=== PATIENT | male | born 1955 | race Caucasian/White ===

== ENCOUNTER 2025-05-31 17:55 | Emergency (ER) | payer MEDICARE, SELFPAY ==
[2025-05-31] VITALS (7 sets, daily range): BP systolic 129–147; BP diastolic 63–75; PULSE 89–100; RESP 16–20; TEMP 36.5–37.1; O2SAT 92–97; BMI 33.7
--- NOTE | 2025-05-31 | ECG_ITS ---
Test Reason : DIZZINESS Blood Pressure : */* mmHG Vent. Rate : 99 BPM Atrial Rate : 99 BPM P-R Int : 244 ms QRS Dur : 112 ms QT Int : 348 ms P-R-T Axes : 44 -24 30 degrees QTcB Int : 446 ms Sinus rhythm with 1st degree A-V block Low voltage QRS Incomplete right bundle branch block Borderline ECG No previous ECGs available Referred By: Generic ED Physician Electronically Signed By: Moncho Jackman
--- NOTE | ~2025-05-31 | XR_ITS ---
CLINICAL HISTORY: near syncope 1 view chest x-ray Comparison: None provided Findings: Minimal bibasilar meniscus ground-glass opacity. The lungs are under expanded. Normal size heart. No acute fracture. IMPRESSION: 1. Minimal bibasilar dependent subsegmental atelectasis. This document has been electronically signed by: Alek Medellin MD on 05/31/2025 20:24:09
[2025-05-31 19:01] LABS: Glucose, Whole Blood 189 mg/dL (60-115)
--- NOTE | 2025-05-31 19:05 | PC.NURSE ---
this RN assumed care of this pt @1900, pt noted to b resting in hospital stretcher w/ eyes closed, responding to verbal stimuli, warm blanket given for comfort, no apparent distress noted at this time
[2025-05-31 20:19] LABS: Hematocrit 35.4 % (42.0-52.0); Hemoglobin 12.4 g/dl (14.0-18.0); Imm Gran Abs Auto 0.02 X10*3/uL (0.00-0.03); Imm Gran Pct Auto 0.3 % (0.0-0.4); Lymphocytes Absolute Auto 0.5 X10*3/uL (1.2-4.9); MANUAL DIFF FLAG NO; Mean Corpuscular HGB Conc 35.0 g/dl (31.0-36.0); Mean Corpuscular Hemoglobin 30.0 pg (27.0-33.0); Mean Corpuscular Volume 85.7 fL (80.0-98.0); NRBC Abs Auto 0.000 X10*3/uL (0.0-0.012); NRBC Pct Auto 0.0 /100WBC (0.0-0.2); Platelet Count 128 X10*3/uL (160-400); Red Blood Count 4.13 X10*6/uL (4.60-5.80); White Blood Count 8.0 X10*3/uL (4.8-10.8)
[2025-05-31 20:36] LABS: COVID-19 Test Negative (Negative); IDNOW Serial# 152EDE1D
[2025-05-31 20:41] LABS: Alanine Aminotransferase 21 U/L (0-40); Albumin Level 4.9 g/dL (3.5-5.0); Alkaline Phosphatase 61 U/L (39-117); Anion Gap 15 (12-20); Aspartate Amino Transferase 23 U/L (5-37); Blood Urea Nitrogen 39 mg/dL (9-16); Calcium 10.5 mg/dL (8.4-10.2); Carbon Dioxide 25 mmol/L (22-29); Chloride 108 mmol/L (96-108); Creatinine Clr Calc Pharmacy 43.8; Estimated Glomerular Filt Rate 39; Lipase 36 U/L (8-78); Magnesium 1.5 mg/dL (1.6-2.6); Potassium 5.4 mmol/L (3.3-5.1); Sodium 143 mmol/L (135-145); Total Protein 7.5 g/dL (6.5-8.0)
[2025-05-31 20:48] LABS: Troponin-I High Sensitivity 3.6 ng/L (<3.5-35.0)
--- OUTSIDE RECORDS SUMMARY | 2025-05-31 21:13 | XMS_ITS | Clinical Summary ---
Author Organization [address] Address [address] [place] [phone] Phone Care Team Providers Care Vocational Nurse Lvn Name Role Phone Susan Sierra MD Primary Care Provider [phone] Medications vitamin B complex (VITAMINS B COMPLEX ORAL) Take by mouth. Active blood-glucose meter (Pogo Automatic Blood Gluc Sys) [facility] Glucose Blood Automatic (POGO Automatic Test Cartridges) Test 1 Each by In Vitro route daily. One cannister of the pogo test cartridges ,containing 5 cartridges Use to test blood sugars once a day Dx code E11.51 - In Vitro 04/15/20 24 Active medical supply, miscellaneous (MISCELLANEOUS MEDICAL SUPPLY [place]) HISTORICAL CPAP Sig - Route: 12cm via nasal mask/ BHI&R - Inhalation Active niacin (NIASPAN) 500 mg CR tablet Take 1 Tab by mouth at bedtime. 11/15/19 17 Active aspirin 81 mg EC tablet 1 TABLET DAILY 07/05/20 07 Active loratadine (CLARITIN) 10 mg tablet Take 1 tablet (10 mg total) by mouth 1 (one) time each day. 90 tablet 1 02/26/20 25 Active cholecalciferol (VITAMIN D-3) 25 mcg (1,000 unit) tablet Take 1 tablet (1,000 Units total) by mouth 1 (one) time each day. 02/26/20 25 Active dapagliflozin propanediol (FARXIGA) 5 mg tablet Take 1 tablet (5 mg total) by mouth 1 (one) time each day. 30 each 03/27/20 25 026 Active glipiZIDE (GLUCOTROL) 10 mg tablet Take 1 tablet (10 mg total) by mouth 2 (two) times a day with meals. 180 tablet 03/31/20 25 Active metFORMIN (GLUCOPHAGE) 1,000 mg tablet Take 1 tablet (1,000 mg total) by mouth 2 (two) times a day with meals. 180 tablet 03/31/20 25 Active allopurinoL (ZYLOPRIM) 100 mg tablet Take 0.5 tablets (50 mg total) by mouth 1 (one) time each day. 45 tablet 03/31/20 25 Active hydroCHLOROthiaz charlie (MICROZIDE) 12.5 mg capsule Take 1 capsule (12.5 mg total) by mouth 1 (one) time each day in the morning. 90 capsule 03/31/20 25 Active amLODIPine (NORVASC) 10 mg tablet Take 1 tablet (10 mg total) by mouth at bedtime. 90 tablet 03/31/20 25 Active atorvastatin (LIPITOR) 20 mg tablet Take 1 tablet (20 mg total) by mouth at bedtime. 90 tablet 03/31/20 25 Active lisinopriL (PRINIVIL,ZESTRI L) 2.5 mg tablet TAKE 1 TABLET(2.5 MG) BY MOUTH AT BEDTIME 90 tablet 1 05/21/20 25 Active gabapentin (NEURONTIN) 300 mg capsule TAKE 1 CAPSULE(300 MG) BY MOUTH THREE TIMES DAILY 270 capsule 1 05/21/20 25 Active gabapentin (NEURONTIN) 300 mg capsule TAKE 1 CAPSULE(300 MG) BY MOUTH THREE TIMES DAILY 270 capsule 1 11/29/19 25 025 Discontinued lisinopriL (PRINIVIL,ZESTRI L) 2.5 mg tablet Take 1 tablet (2.5 mg total) by mouth at bedtime. 90 tablet 02/26/20 25 025 Discontinued Active Problems Problem Noted Date Diagnosed Date HTN (hypertension) 10/18/2024 Assessment & Plan (10/22/2024 12:57 PM EST): Type II diabetes mellitus wi th renal manifestations (CMS/HCC V24, CMS/HCC V28) 07/11/2024 Assessment & Plan (10/22/2024 12:57 PM EST): Orders: Hemoglobin A1c; Future Abdominal hernia 07/11/2024 Overview (07/11/2024): IMO update Colon polyps 03/02/2023 Overview (07/11/2024): 2018, 4 TA, 2022 3 TA, repeat 3 years CKD (chronic kidney disease) stage 3, GFR 30-59 ml/min ([facility] V24, [facility] V28) 12/13/2019 Assessment & Plan (10/22/2024 12:57 PM EST): Carpal tunnel syndrome on both sides 06/30/2017 Diabetic polyneuropathy asso ciated with type 2 diabetes mellitus ([facility] V24, [facility] V28) 11/14/2016 Severe obesity (BMI 35.0-39. 9) with comorbidity ([facility] V24, [facility] V28) 08/29/2013 Pancytopenia ([facility] V24, [facility] V28) 08/22/20 13 NS (nuclear sclerosis) 01/21/2013 Overview (07/11/2024): Bilateral- mild. Type II diabetes mellitus wi th ophthalmic manifestations ([facility] V24, [facility] V28) 01/21/2013 Microalbuminuria 12/07/2012 Type 2 diabetes mellitus wit h peripheral vascular disease ([facility] V24, [facility] V28) 10/30/2012 Diverticula of colon 08/02/2011 Pure hypercholesterolemia 10/19/2010 Assessment & Plan (10/22/2024 12:57 PM EST): Fatty liver 01/28/2010 Gall stone 01/28/2010 Overview (07/11/2024): Incidental finding on CT of the chest. 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 Gout, unspecified 07/05/2007 Encounters Date Type Department Care Team Description 03/27/2025 1:15 PM EDT Office Visit Nephrology [address] [phone] Serafin Ivan MD Stage 3 chronic kidney disease, unspecified whether stage 3a or 3b CKD ([facility] V24, [facility] V28) (Primary Dx); Type 2 diabetes mellitus with diabetic nephropathy, without long-term current use of insulin ([facility] V24, [facility] V28); Hypertension, unspecified type from Last 3 Months Immunizations Name Administration Dates Next Due H1N1 Inj Preservative Free 07/28/2009 Influenza Quadravalent, 0.5m l (Fluzone High-dose) 65yo and older 05/18/2022 Influenza Quadravalent, MDCK , 0.5ml, preservative free (Flucelvax) 6mo and older 05/21/2018 Influenza Quadravalent, MDCK , 0.5ml, with preservative (Flucelvax) 6mo and older 05/18/2017 Influenza Quadrivalent, 0.5m l, preservative free (Fluarix; FluLaval; Fluzone) ages 6mo and older (Afluria) 3yo and older 05/10/2016 Influenza trivalent, 0.5mL ( Fluad) 65yo and older 10/22/2024,06/15/2023,07/04/2022,05/18,05/31/2021,06/02/2020,08/21/2019 Influenza trivalent, 0.5mL ( Fluzone High-dose) 65yo and older 06/15/2023,07/04/2022,05/31/2021,06/02,08/21/2019 Influenza trivalent, 0.5mL, preservative free (Fluarix; FluLaval; Fluzone) ages 6mo and older (Afluria) 3 years and older 07/28/2008,07/05/2007 Influenza trivalent, with pr eservative (Fluzone; Afluria) 6mo and older 05/10/2016,06/10/2015,06/16/2014,05/23,05/10/2012,08/02/2011,07/21/2010 ,08/21/2009,07/28/2008,07/05/2007 Moderna (age 6mo & older) Bi valent, COVID-19, 0.5 mL or 0.25 mL dosage 07/08/2022 Pneumococcal conjugate 13 va lent (Prevnar 13, PCV13) 2mo and older 12/16/2014 Pneumococcal polysaccharide 23 valent (Pneumovax 23) 2yo and older 11/19/2018,08/16/2012,07/05/2007 Td Tetanus diptheria (Tdvax) 7yo and older 08/20/2018 Tdap Tetanus diptheria acell ular pertussis (Boostrix; Adacel) 7yo and older 07/28/2008 Zoster Live 05/10/2016 Surgical History Surgery Date Site/Laterality Comments OTHER SURGICAL HISTORY baby Tongue tied surgery CATARACT EXTRACTION 09/04/2004 COLONOSCOPY 06/11/2008 Up to cecum, good preparation, mild sigmoid diverticulosis COLONOSCOPY 08/2023 3 tubular adenomas, repeat 3 years Medical History Medical History Date Comments Metabolic syndrome X HTN (hypertension) Gout Diverticula of colon 08/02/2011 DM (diabetes mellitus), type 2 with peripheral vascular complications ([facility] V24, [facility] V28) 10/30/2012 Sleep apnea Wrist pain 11/09/2015 Peripheral neuropathy Family History Medical History Relation Name Comments Diabetes Brother 1 Other: heart Brother 2 Heart attack Father PVD Heart attack Mother Relation Name Status Comments Brother 1 (Age 55) Brother 2 Father (Age 60s) Maternal Grandfather Maternal Grandmother Mother (Age 48) Paternal Grandfather Paternal Grandmother Social History Tobacco Use Types Packs/Day Years Used Date Smoking Tobacco: Never Smokeless Tobacco: Never Alcohol Use Standard Drinks/Week Comments Yes 0 (1 standard drink = 0.6 oz pur e alcohol) Housing Instability Answer Date Recorde d Are you worried that in the next 2 months you may not have stable housing? No 10/15/2024 Food Access & Nutrition Answer Date Rec orded Do you have access to a vari ety of food including fruits and vegetables? Yes 10/15/2024 Access to Healthcare Answer Date Record ed Within the last 3 months, ho w many times did you visit the emergency department for your medical care? 0 10/15/2024 Health Literacy Answer Date Recorded How often do you need to hav e someone help you when you read instructions, pamphlets, or other written material from your doctor or pharmacy? Sometimes 10/15/2024 Caregiver: How often do you need to have someone help you when you read instructions, pamphlets, or other written material from your doctor or pharmacy? Not on file 10/15/2024 Financial Risk Answer Date Recorded How hard is it for you to pa y for the very basics like food, housing, medical care, and air conditioning / heating? Somewhat hard 10/15/2024 Transportation Answer Date Recorded Has the lack of transportati on kept you from meetings, work, or from getting things needed for daily living? No Has the lack of transportati on kept you from medical appointments or from getting medications? No 10/15/2024 Social Isolation Answer Date Recorded How often do you feel lonely or isolated from th ose around you? Rarely 10/15/2024 Food Risk Answer Date Recorded Within the past 12 months we worried whether our food would run out before we got money to buy more. Never true 10/15/2024 Within the past 12 months th e food we bought just didn't last and we didn't have money to get more. Never true 10/15/2024 Dependent Care Answer Date Recorded Do you need help finding or paying for care for your loved ones. For example, director maternal child or elderly care for an older adult? No 10/15/2024 Education Answer Date Recorded Do you think completing more education or training, like finishing a GED, going to college, or learning a trade, would be helpful for you? No 10/15/2024 Employment and Income Answer Date Recor ded During the last four weeks, have you been actively looking for work? No 10/15/2024 Living Situation Answer Date Recorded What is your living situation? 0 10/15/2024 Sex and Gender Information Value Date Recorded Sex Assigned at Not on file Legal Sex Male 9:32 PM EST Gender Identity Not on file Sexual Orientation Not on file Obstetrics History Last Filed Vital Signs Vital Sign Reading Time Taken Comments Blood Pressure 115/61 03/27/2025 1:11 PM EDT Pulse 66 03/27/2025 1:11 PM EDT Temperature 35.8 C (96.5 F) 02/25/2025 9:54 AM EDT Respiratory Rate 16 02/25/2025 9:54 AM EDT Oxygen Saturation 98% 02/25/2025 9:54 AM EDT Inhaled Oxygen Concentration - - Weight 98 kg (216 lb) 03/27/2025 1:11 PM EDT Height 170.2 cm (5' 7 ) 02/25/2025 9:54 AM EDT Body Mass Index 33.83 02/25/2025 9:54 AM EDT Plan of Treatment Upcoming Encounters Date Type Department Care Team (Late st Contact Info) Description 07/03/2025 8:15 AM EDT Office Visit Adult Medicine [address] [phone] Susan Sierra MD [address] [place], [place] 04/02/2026 1:00 PM EDT Office Visit Nephrology - [address] [phone] Serafin Ivan MD [facility] [address] [phone] Health Maintenance Due Date Last Done Comments Diabetes: Annual Foot Exam 1965 Diabetes: Annual Retina Eye Exam 1965 RSV Immunization Adult Patients (1 - Risk 60-74 years 1-dose series) 2013 Zoster Vaccines (1 of 2) 07/05/2016 05/10/2016 COVID-19 Vaccine ( season) 2025 07/17/2023, 07/08/2022, 12/24/2021, Additional history exists Influenza Vaccine (#1) 2025 , 06/15/2023, 06/15/2023, Additional history exists Diabetes: Blood Sugar Control Test (HGBA1C) 07/23/2025 01/20/2025, 10/08/2024, 07/22/2024, Additional history exists Social Influencers of Health Screening 10/15/2025 10/15/2024 Medicare Annual Wellness Visit 10/22/2025 10/22/2024, 10/16/2023 Diabetes: Annual Urine Albumin-Creatinine Ratio (uACR) 01/30/2026 01/30/2025, 10/08/2024, 04/03/2024 Diabetes: Annual GFR (Glomerular Filtration Rate) 01/30/2026 01/30/2025, 10/08/2024, 08/15/2024, Additional history exists Hypertension/CHF/CAD Annual BMP Blood Test 01/30/2026 01/30/2025, 10/08/2024, 08/15/2024, Additional history exists Falls Risk Assessment 02/25/2026 02/25/2025, 025 Colorectal Cancer Screening: Colonoscopy 08/15/2026 08/18/2023, 08/15/2023 DTaP,Tdap,and Td Vaccines (3 - Td or Tdap) 08/20/2028 08/20/2018, 07/28/2008 Cholesterol Screening (Lipid Panel) 04/03/2029 04/03/2024, 04/03/2024 Pneumococcal Vaccine: 50+ Years Completed 11/19/2018, 12/16/2014, 08/16/2012, Additional history exists Hepatitis C Screening Completed 12/16/2019 Depression Screening Completed 02/19/2025 HIB Vaccines Aged Out No longer eligi ble based on patient's age to complete this topic HPV Vaccines Aged Out No longer eligi ble based on patient's age to complete this topic Hepatitis A Vaccines Aged Out No long er eligible based on patient's age to complete this topic Hepatitis B Vaccines Aged Out No long er eligible based on patient's age to complete this topic IPV Vaccines Aged Out No longer eligi ble based on patient's age to complete this topic MMR Vaccines Aged Out No longer eligi ble based on patient's age to complete this topic Meningococcal ACWY Vaccine Aged Out N o longer eligible based on patient's age to complete this topic Meningococcal B Vaccine Aged Out No l onger eligible based on patient's age to complete this topic RSV Immunization Patients Under 20 months Aged Out No longer eligible based on patient's age to complete this topic Varicella Vaccines Aged Out No longer eligible based on patient's age to complete this topic Procedures Procedure Name Priority Date/Time Associated Diagnosis Comments MICROALBUMIN CREATININE URINE RATIO Routine 01/30/2025 2:27 PM EDT Stage 3 chronic kidney disease, unspecified whether stage 3a or 3b CKD ([facility] V24, [facility] V28) BASIC METABOLIC PANEL Routine 01/30/2025 2:27 PM EDT Stage 3 chronic kidney disease, unspecified whether stage 3a or 3b CKD (CMS/HCC V24, [facility] V28) HEMOGLOBIN A1C Routine 01/20/2025 10:00 AM EDT Type 2 diabetes mellitus with stage 3 chronic kidney disease, without long-term current use of insulin, unspecified whether stage 3a or 3b CKD (CMS/HCC V24, [facility] V28) LIPID PANEL Routine 04/03/2024 HM COLONOSCOPY Routine 08/18/2023 HEPATITIS C SCREENING Routine 12/16/2019 from Last 3 Months or Most Recently Relevant to Health Maintenance Results * (ABNORMAL) Microalbumin creatinine urine ratio (01/30/2025 2:27 PM EDT) Creatinine, Urine 54.0 mg/dL LAB CHEMISTRY METHOD 01/30/2025 6:03 PM EDT [facility] Microalb, Ur 141.0(H) 0.0 - 29.0 mg/L LAB CHEMISTRY METHOD 01/30/2025 6:03 PM T [facility] Microalb/Crea t Ratio 261(H) <30 mg/g creat LAB CHEMISTRY METHOD 01/30/2025 6:03 PM [facility] Urine Urine specimen obtained by clean catch procedure / Unknown Non-blood Collection / Unknown 01/30/2025 2:27 PM EDT 01/30/2025 2:27 PM EDT us Serafin Ivan MD LAB URINE ORDERABLES Final Res ult [facility] [address] [place] [address], * (ABNORMAL) Basic metabolic panel (01/30/2025 2:27 PM EDT) Sodium 140 133 - 145 mmol/L [facility] Potassium 4.6 3.5 - 5.5 mmol/L LAB CHEMISTRY METHOD 01/30/2025 5:13 PM [facility] Chloride 106 96 - 110 mmol/L LAB CHEMISTRY METHOD 01/30/2025 5:13 PM [facility] CO2 27 21 - 32 mmol/L LAB CHEMISTRY METHOD 01/30/2025 5:13 PM [facility] Anion Gap 7 3 - 11 LAB CHEMISTRY METHOD 01/30/2025 5:13 PM [facility] Glucose 134(H) 70 - 100 mg/dL LAB CHEMISTRY METHOD 01/30/2025 5:13 PM [facility] BUN 36(H) 5 - 25 mg/dL LAB CHEMISTRY METHOD 01/30/2025 5:13 PM [facility] Creatinine 1.42(H) 0.70 - 1.30 mg/dL LAB CHEMISTRY METHOD 01/30/2025 5:13 PM [facility] eGFR 53(L) >=60 mL/min/1. 73m2 LAB CHEMISTRY METHOD 01/30/2025 5:13 PM [facility] Comment:Calculation based on the Chronic Kidney Disease Epidemiology Collaboration (CKD-EPI) equation refit without adjustment for race. BUN/Creatinine Ratio 25.4 LAB CHEMISTRY METHOD 01/30/2025 5:13 PM [facility] Calcium 9.7 8.5 - 10.5 mg/dL LAB CHEMISTRY METHOD 01/30/2025 5:13 PM EDT [facility] Blood Venous blood specimen / Unknown Venipuncture / Unknown 01/30/2025 2:27 PM EDT 01/30/2025 2:27 PM EDT Serafin Ivan MD LAB BLOOD ORDERABLES Final Res ult Performing Organization Address [facility]/ZIP Co de Phone Number [facility] [address] [place] [address], [place] [phone] * (ABNORMAL) Hemoglobin A1c (01/20/2025 10:00 AM EDT) Hemoglobin A1C 6.7(H) <6.5 % LAB CHEMISTRY METHOD 01/20/2025 9:53 PM EDT [facility] Mean Bld Glu Estim. 146 mg/dL LAB CHEMISTRY METHOD 01/20/2025 9:53 PM EDT [facility] Blood Venous blood specimen / Unknown Venipuncture / Unknown 01/20/2025 10:00 AM EDT 01/20/2025 10:00 AM EDT Susan Sierra MD LAB BLOOD ORDERABLES Final Resul t Performing Organization Address [facility]/ZIP Co de Phone Number [facility] [address] [place] [address], [place] [phone] * (ABNORMAL) Lipid panel (04/03/2024) LDL/HDL Ratio 2 0 - 4 Triglycerides 175(A) 0 - 150 mg/dL Cholesterol 74 0 - 200 mg/dL HDL 32(A) >=40 mg/dL LDL Cholesterol 0 0 - 100 mg/dL Comment:no interpretation Blood Venous blood specimen / Unknown Maya Oglesby MD LAB BLOOD ORDERABLES Valery l Result * Hm Colonoscopy (08/18/2023) Colonoscopy no interpretation , abstracted Anatomical Region Laterality Modality Other Historical Provider HEALTH MAINTENANCE Final Result * Hepatitis C Screening (12/16/2019) Hepatitis C Screening abstracted Historical Provider HEALTH MAINTENANCE Final Result from Last 3 Months or Most Recently Relevant to Health Maintenance Insurance [employer] Care Teams Vocational Nurse Lvn Relationship Specialty Start Date End Date Susan Sierra MD [address] [place] [phone] PCP - General Internal Medicine 12/02/20
--- OUTSIDE RECORDS SUMMARY | 2025-05-31 21:13 | XMS_ITS ---
Author Name [facility] Organization Unknown Care Team Organization Name Specialty Phone Email Start Date End Da te [facility] Susan Sierra Primary Care 07/12/2022 4
--- OUTSIDE RECORDS SUMMARY | 2025-05-31 21:13 | XMS_ITS | Clinical Summary ---
Author Organization [facility] Address [address] [address] Phone Care Team Providers Care Reservationist Name Role Phone Susan Sierra MD Primary Care Provider [phone] Allergies No known active allergies Medications b complex vitamins tablet Take by mouth. Active allopurinol (ZYLOPRIM) 100 MG tablet Take 1 tablet by mouth daily. 04/05/2021 Active atorvastatin (LIPITOR) 20 MG tablet Take 1 tablet by mouth daily. 03/31/2021 Active cholecalciferol (VITAMIN D3) 25 MCG (1,000 unit) tablet Take 500 mg by mouth daily. Active gabapentin (NEURONTIN) 300 MG capsule Take 1 capsule by mouth nightly at bedtime. 02/25/2021 Active glipiZIDE (GLUCOTROL) 10 MG tablet Take 10 mg by mouth. 05/31/2021 Active hydroCHLOROthia zide (MICROZIDE) 12.5 mg capsule Take 12.5 mg by mouth. 04/02/2021 Active lisinopril (PRINIVIL,ZESTR IL) 2.5 MG tablet Take 1 tablet by mouth daily. 02/05/2021 Active metFORMIN (GLUCOPHAGE) 1000 MG tablet TAKE 1 TABLET BY MOUTH 2 TIMES DAILY WITH MEALS 04/02/2021 Active aspirin 81 mg chewable tablet Take 81 mg by mouth daily. Active Active Problems No known active problems Social History Tobacco Use Types Packs/Day Years Used Date Smoking Tobacco: Never Smokeless Tobacco: Never Alcohol Use Standard Drinks/Week Comments Never 0 (1 standard drink = 0.6 oz pur e alcohol) Education Answer Date Recorded Are you interested in more education? Not on lori e 12/30/2022 Are you concerned about learning? Not on file 12/30/2022 No 12/30/2022 No 12/30/2022 Digital Access Answer Date Recorded No 01/28/2023 No 01/28/2023 No 01/28/2023 Reliable internet access at home? Not on file 01/28/2023 Device with a working camera? Not on file Intimate Partner Violence Answer Date R ecorded Are you denied basic needs s uch as food, clothing, or medical care? No 10/19/2024 In the past 12 months have y ou been in a relationship with a person who hurts, threatens, or tries to control you? No 10/19/2024 Are you denied basic needs s uch as food, clothing, or medical care? No 10/19/2024 In the past 12 months have y ou been in a relationship with a person who hurts, threatens, or tries to control you? No 10/19/2024 Sex and Gender Information Value Date Recorded Sex Assigned at Male 10/19/2024 9:45 PM EST Legal Sex Male 9:58 PM EDT Gender Identity Male 10/19/2024 9:45 PM EST Sexual Orientation Choose not to disclose 2024 9:45 PM EST Last Filed Vital Signs Vital Sign Reading Time Taken Comments Blood Pressure 141/77 10/20/2024 12:39 AM EST Pulse 68 10/20/2024 12:39 AM EST Temperature 36.6 C (97.9 F) 10/20/2024 12:39 AM EST Respiratory Rate 16 10/20/2024 12:39 AM EST Oxygen Saturation 98% 10/20/2024 12:39 AM EST Inhaled Oxygen Concentration - - Weight 97.5 kg (215 lb) 10/19/2024 4:17 PM EST Height 170.2 cm (5' 7 ) 10/19/2024 4:17 PM EST Body Mass Index 33.67 10/19/2024 4:17 PM EST Plan of Treatment Health Maintenance Due Date Last Done Comments DEPRESSION SCREENING 1965 HEPATITIS C SCREENING 1971 COLOGUARD 1998 COLONOSCOPY 1998 COLORECTAL CANCER SCREENING 1998 FIT TEST 1998 FOBT 1998 SIGMOIDOSCOPY 1998 VIRTUAL COLONOSCOPY 1998 ZOSTER VACCINES (2 of 3) 07/05/2016 05/10/2016 INFLUENZA VACCINE (#1) 2025 , 05/31/2021, 06/02/2020, Additional history exists COVID-19 VACCINE (3 - 2024- season) 2025 10/27/2020, 10/27/2020, 09/29/2020, Additional history exists CREATININE LEVEL 10/19/2025 10/19/2024 POTASSIUM LEVEL 10/19/2025 10/19/2024 Adult Td,Tdap Booster 08/20/2028 08/20/2018, 008 RSV VACCINE (1 - 1-dose 75+ series) 2028 LIPID PANEL 04/03/2029 04/03/2024 PNEUMOCOCCAL VACCINES (50+ years) Completed 11/19/2018, 12/16/2014, 08/16/2012, Additional history exists SMOKING STATUS SCREENING (Once After 26 Yrs) Completed 06/18/2021 HEPATITIS A VACCINES Aged Out No long er eligible based on patient's age to complete this topic HIB VACCINES Aged Out No longer eligi ble based on patient's age to complete this topic MENINGOCOCCAL VACCINES (ACWY) Aged Out No longer eligible based on patient's age to complete this topic MENINGOCOCCAL VACCINES (B) Aged Out N o longer eligible based on patient's age to complete this topic Medical Devices Not on file Procedures Procedure Name Priority Date/Time Associated Diagnosis Comments BASIC METABOLIC PANEL STAT 10/19/2024 4:23 PM EST from Last 3 Months or Most Recently Relevant to Health Maintenance Results * (ABNORMAL) Basic metabolic panel (10/19/2024 4:23 PM EST) SODIUM 138 133 - 146 mmol/L [facility] CHLORIDE 100 96 - 108 mmol/L [facility] POTASSIUM 4.9 3.3 - 5.1 mmol/L [facility] CO2 29 21 - 35 mmol/L [facility] BUN 30(H) 6 - 19 mg/dL [facility] CREATININE 1.40 0.5 - 1.5 mg/dL [facility] GLUCOSE 136(H) 70 - 99 mg/dL [facility] CALCIUM 10.2 8.4 - 10.3 mg/dL [facility] EGFR 54(L) >59 mL/min/1.7 3m2 [facility] Comment:Estimated glomerular filtration rate calculated using the CKD-EPI refit equation. ANION GAP 14 10 - 20 mmol/L [facility] Blood 10/19/2024 4:23 PM EST 10/19/2024 4:27 PM EST us Khalif Fried MD LAB BLOOD ORDERABL ES Final Result [facility] [address] [place] [address] from Last 3 Months or Most Recently Relevant to Health Maintenance Insurance [employer] HMO REPLACEMENT MEDICARE PART A & B [employer] HMO REPLACEMENT MEDICARE PART A & B MEDICARE HMO REPLACEMENT MEDICARE HMO [place] [address] [place] [address] MEDICARE HMO REPLACEMENT MEDICARE PART A & B [place] [facility] MEDICARE HMO REPLACEMENT MEDICARE HMO REPLACEMENT MEDICARE PART A & B MEDICARE HMO REPLACEMENT MEDICARE PART A & B [employer] MEDIC[employer] HMO REPLACEMENT MEDICARE PART A & B Care Teams Reservationist Relationship Specialty Start Date End Date Susan Sierra MD [address] [place] [address] PCP - General Internal Medicine 06/18/21 Additional Source Comments The information contained in this document represents components of the legal health record. It is not the complete legal health record.[facility]
--- OUTSIDE RECORDS SUMMARY | 2025-05-31 21:13 | XMS_ITS | Encounter Summary ---
Author Organization [facility] Address [address] [facility] [address] [place] [id number] Phone Care Team Providers Care Ec Teacher Name Role Phone Susan Sierra MD Primary Care Provider [phone] Encounter Details Date Type Department Care Team (Late st Contact Info) Description 10/19/2024 Procedure [facility], Ct Scan - [address] [address] Social History Tobacco Use Types Packs/Day Years [...] not to disclose 2024 9:45 PM EST documented as of this encounter Functional Status * Calculated C-SSRS Risk Score (Lifetime/Recent) Answer Date of Assessment Author No Risk Indicated 10/19/2024 4:18 PM Autumn Soliman RN * [place] Suicide Severity Rating Scale (Screener/Recent Self-Report) Question Answer Date of Assessment Author 1. Wish to be (Past 1 Month) No 10/19/2024 4:18 PM Autumn Soliman RN 2. Non-Specific Active Suici diandra Thoughts (Past 1 Month) No 10/19/2024 4:18 PM Rozina Soliman RN 6. Suicidal Behavior (Lifetime) No 4:18 PM Autumn Soliman RN documented as of this encounter Plan of Treatment Not on file documented as of this encounter Visit Diagnoses Not on filedocumented in this encounter Care Teams Ec Teacher Relationship Specialty Start Date End Date Susan Sierra MD [address] [place] [id number] PCP - General Internal Medicine 06/18/21 documented as of this encounter Additional Source Comments The information contained in this document represents components of the legal health record. It is not the complete legal health record.[facility]
[2025-05-31] MEDS: Magnesium Sulfate/H2O 2 GM/50 ML PIGGYBACK IV (21:47)
--- NOTE | 2025-05-31 23:44 | ED_ITS ---
HPI - General Adult General Chief complaint: Nausea/Vomiting/Diarrhea Stated complaint: N/V, diaphoretic,felt glucose drop,bgl 185 for ems Time Seen by Provider: 05/31/25 19:56 Source: patient Limitations: no limitations History of Present Illness ED Provider: Michelle Silva PA-C HPI narrative: 69-year-old male with a history of diabetes, hypertension, hyperlipidemia, chronic kidney disease stage 3 who presents after near syncopal episode. 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 Patient states he became hot, with the associated abdominal cramping. He developed acute onset nausea vomiting diarrhea. Denies sick contacts with similar symptoms, recent travel, recent hospitalization or use of antibiotics. Denies preceding chest pain, palpitations or shortness of breath. Related Data Previous Rx's ?Medication ?Instructions ?Recorded ondansetron 4 mg disintegrating 4 mg PO Q8H PRN nausea and 05/31/25 tablet vomiting #10 tabs Allergies Allergy/AdvReac Type Severity Reaction Status Date / Time No Known Allergies Allergy Verified 05/31/25 18:41 [facility] Social History Social History Smoked in Last 30 Days: No Use of substances other than those prescribed or required for medical reasons: No Advance Directives: No Advance Directives Information Provided: No Do you have a plan to hurt others: No Plan Physical Exam ED Vital Signs: Vital Signs - 24 hr 05/31/25 18:45 05/31/25 20:46 05/31/25 20:46 Temperature 98.4 F Pulse Rate 99 94 95 Respiratory Rate 16 Blood Pressure 140/72 H 130/71 129/71 Pulse Oximetry 94 Oxygen Delivery Method Room Air 05/31/25 20:48 05/31/25 21:31 05/31/25 22:00 Temperature 97.7 F 98.7 F Pulse Rate 97 93 95 Respiratory Rate 17 20 Blood Pressure 132/75 129/73 131/63 Pulse Oximetry 97 92 Oxygen Delivery Method Room Air Room Air BMI result Body Mass Index 33.7 Medications Administered Discontinued Medications Generic Name Dose Route Start Last Admin Trade Name Freq PRN Reason Stop Dose Admin Sodium Chloride 1,000 mls @ 999 mls/hr 05/31/25 20:45 05/31/25 22:39 Ns IV 05/31/25 21:45 Infused .Q1H1M PARAS Infusion Magnesium Sulfate 2 gm in 50 mls @ 150 mls/hr 05/31/25 21:36 05/31/25 22:39 Magnesium Sulfate/H2o IV 05/31/25 21:55 Infused ONCE ONE Infusion Sodium Zirconium Cyclosilicate 10 gm 05/31/25 21:36 05/31/25 21:47 Sodium Zirconium Cyclosilicate 10 Gm Powd.Pack PO 05/31/25 21:37 10 gm ONCE ONE Administration Medical Decision Making Medical Decision Making [facility] Narrative: 69-year-old male with a history of diabetes, hypertension, hyperlipidemia, chronic kidney disease stage 3 who presents after near syncopal episode. 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 Patient states he became hot, with the associated abdominal cramping. He developed acute onset nausea vomiting diarrhea. Denies sick contacts with similar symptoms, recent travel, recent hospitalization or use of antibiotics. Denies preceding chest pain, palpitations or shortness of breath. Problem: Age, diabetes, chronic kidney disease History: Per patient I have considered the following differential diagnoses: Hyperglycemia, viral gastroenteritis, vasovagal near-syncope, dehydration, electrolyte abnormality, anemia, ACS Plan: Sounds as if the patient was developing acute GI symptoms, likely from viral gastroenteritis, prior to his near syncopal episode. I will classify this is vagal vagal syncope. Screening labs obtained from triage, his potassium is subtly bumped at 5.4, his creatinine is not far off from his baseline, but he is subtly dehydrated, his Mag is low as well. We will be giving fluid, Lokelma, calcium gluconate, and 2 g of magnesium. We will check orthostatic vitals. ACS was considered, the patient does have risk factors for coronary artery disease, however there was no chest pain no shortness of breath, EKG chest x-ray and troponin obtained. I have independently reviewed the following tests: Labs: No leukocytosis, not anemic, potassium bumped at 5.4, creatinine 1.72 the patient is minimally elevated from his baseline creatinine, magnesium 1.5, trop 3.6 EKG: Sinus rhythm, rate of 99, first-degree AV block, incomplete right bundle, no ectopy, QTC 446 Chest x-ray:indings: Minimal bibasilar meniscus ground-glass opacity. The lungs are under expanded. Normal size heart. No acute fracture. IMPRESSION: 1. Minimal bibasilar dependent subsegmental atelectasis. Differential Diagnosis Differential Diagnoses: The differential diagnosis associated with the presentation includes See medical decision-making Admission/Observation Consideration of admission/observation: Escalation of care including admission/observation considered Not applicable Lab Data MDM Lab Attestation statement: I reviewed the patient's lab results. 05/31/25 20:14 05/31/25 20:14 Labs: Lab Results 05/31/25 05/31/25 Range/Units 18:46 20:14 WBC 8.0 (4.8-10.8) X10*3/uL RBC 4.13 L (4.60-5.80) X10*6/uL Hgb 12.4 L (14.0-18.0) g/dl Hct 35.4 L (42.0-52.0) % MCV 85.7 (80.0-98.0) fL MCH 30.0 (27.0-33.0) pg MCHC 35.0 (31.0-36.0) g/dl RDW 13.7 (11.0-16.0) % Plt Count 128 L (160-400) X10*3/uL MPV 9.4 (9.4-12.4) fL Immature Gran % (Auto) 0.3 (0.0-0.4) % Neut % (Auto) 83.6 H (45-73) % Lymph % (Auto) 6.5 L (20-40) % Gentry % (Auto) 9.4 (2-11) % Eos % (Auto) 0.1 (0-4) % Baso % (Auto) 0.1 (0-2) % Lymph # (Auto) 0.5 L (1.2-4.9) X10*3/uL Gentry # (Auto) 0.8 (0.1-1.2) X10*3/uL Eos # (Auto) 0.0 (0.0-0.4) X10*3/uL Baso # (Auto) 0.0 (0.0-0.2) X10*3/uL Abs Immat Gran (auto) 0.02 (0.00-0.03) X10*3/uL Absolute Neuts (auto) 6.7 (2.0-8.3) x10*3/uL Absolute Nucleated RBC 0.000 (0.0-0.012) X10*3/uL Nucleated RBC % (auto) 0.0 (0.0-0.2) /100WBC Sodium 143 (135-145) mmol/L Potassium 5.4 H (3.3-5.1) mmol/L Chloride 108 (96-108) mmol/L Carbon Dioxide 25 (22-29) mmol/L Anion Gap 15 (12-20) BUN 39 H (9-16) mg/dL Creatinine 1.72 H (0.5-1.4) mg/dL Estim Creat Clear Calc 43.8 Estimated GFR 39 POC Glucose 189 H (60-115) mg/dL Random Glucose 201 H (60-115) mg/dL Calcium 10.5 H (8.4-10.2) mg/dL Magnesium 1.5 L (1.6-2.6) mg/dL Total Bilirubin 0.7 (0.0-1.0) mg/dL AST 23 (5-37) U/L ALT 21 (0-40) U/L Alkaline Phosphatase 61 (39-117) U/L Troponin I High Sens 3.6 (<3.5-35.0) ng/L Total Protein 7.5 (6.5-8.0) g/dL Albumin 4.9 (3.5-5.0) g/dL Lipase 36 (8-78) U/L COVID-19 (CAIN) Negative (Negative) COVID-19 Clin Com See Note Independent Interpretation I performed an independent interpretation of an: EKG Radiology Impression Discussion of test interpretation with radiology: I have reviewed the radiologist's reading. Critical Care Time Critical Care Time Critical Care Time: Yes Total Critical Care Time: 35 Attestation: I Michelle Silva PA-C have personally performed 35 minutes of critical care time not including lines and procedures; hypomagnesemia, hyperkalemia, need for IV calcium gluconate, Lokelma, 2 g of magnesium replacement, IV fluid therapy, Discharge Plan Discharge Clinical Impression: Gastroenteritis, Vasovagal near syncope Patient Disposition: Home, Self-Care Instructions: Syncope (ED), Gastroenteritis (ED) Additional Instructions: You were found to be mildly dehydrated, your magnesium level was on the low side of normal as well. The magnesium was replenished, you received IV fluid therapy. There were no concerning changes on your EKG, overall your lab studies were normal. I suspect you likely have a virus that caused your symptoms this afternoon. The acute onset of abdominal cramping with the active vomiting, can cause what is called a vasovagal reaction. I have provided you with information to read about. Follow up with your primary care provider as needed. Uses Zofran as needed for further episodes of nausea/vomiting. Prescriptions: New ondansetron 4 mg tablet,disintegrating 4 mg PO Q8H PRN (Reason: nausea and vomiting) Qty: 10 0RF Interventions: ED Discharge Assessment Last Done: 06/01/25 00:02 Discharge Date/Time: 06/01/25 00:10 Print Language: Ugandan
[2025-06-01 00:02] VITALS: BP 138/65; PULSE 89; RESP 16; TEMP 36.9; O2SAT 95
== END 2025-06-01 00:10 | disposition home or self-care (01) ==
PROVIDERS: Physician Assistant Medical; Emergency Provider Emergency Medicine; PCP Internal Medicine
DX: K52.9 Noninfective gastroenteritis and colitis, unspecified (principal); R11.2 Nausea with vomiting, unspecified; R55 Syncope and collapse; R11.0 Nausea; I44.0 Atrioventricular block, first degree; R94.31 Abnormal electrocardiogram [ECG] [EKG]; Z11.52 Encounter for screening for COVID-19; Z79.899 Other long term (current) drug therapy
CPT/HCPCS: 36415; 71045; 80053; 82947; 83690; 83735; 84484; 85025; 87635; 93005; 96361; 96374; 99284; 99285; J3475

== ENCOUNTER → 2025-05-31 18:55 | Outpatient (BNV) | payer MEDICARE, SELFPAY | PROVIDERS: Emergency Provider Emergency Medicine; PCP Internal Medicine; Visit Provider Internal Medicine Cardiovascular Disease | DX: I44.0 Atrioventricular block, first degree (principal); I45.10 Unspecified right bundle-branch block | CPT/HCPCS: 93010 ==

== ENCOUNTER → 2025-05-31 19:58 | Outpatient (BNV) | payer MEDICARE, SELFPAY | PROVIDERS: Emergency Provider Emergency Medicine; Visit Provider Radiology Diagnostic Radiology | DX: R55 Syncope and collapse (principal) | CPT/HCPCS: 71045 ==